=== PATIENT | male | born 2000 | race Caucasian/White ===

== ENCOUNTER → 2019-06-17 | Day surgery (SDC) | payer OTHER ==
[~2019-06-17] MED LIST: IV RINGERS,LACTATED 1000ML 1,000 ML IV SCH; LIDOCAINE 2% PF 5 ML VIAL. ONE; PROPOFOL 60 ML IV ONE
--- NOTE | 2019-06-17 13:34 | PDOC4 ---
PROCEDURE Procedure Colonoscopy/biopsies EGD/biopsies Indication: Blood in stool/dyspepsia Meds: per anesthesia Findings: JEFFREY--normal -'Scope advanced to TI. Mucosa normal. No polyps, tics, etc. No real hemorrhoids nor fissure. Biopsies rectum to r/o inflammation. EGD E--Grade A at 42cm. G--Mile antral erythema D--normal to 3rd portion. Mikey. well. IMP: Normal colon, biopsies pending. Reflux Mild antral erythema, non-specific. REC: Await histology. F/u in 2 weeks. Unless otherwise indicated, colonoscopy age 45-50 for screening. BECKIE BROWN MD Jun 17, 2019 13:34
[2019-06-17 14:09] VITALS: BP 107/65
--- NOTE | 2019-06-19 18:06 | PATHOLOGY ---
[facility] Accession Number: [id number] . 01 Material submitted: . PART A: stomach - ANTRAL BIOPSY PART B: rectum - RECTAL BIOPSY . 01 Clinical history: . Heartburn, blood in stool . 02 Diagnosis: A. Gastric biopsy, antrum: - Active chronic gastritis, moderate to marked, with numerous Helicobacter organisms identified. . B. Colorectal biopsy, rectum: - No significant pathologic abnormalities. (JPM:[facility] 06/19/2019) [facility] 06/19/2019 0932 Local . 02 Comment: Sections of the gastric biopsy reveal gastric antral mucosa showing congestion and moderate to marked active chronic inflammation. A properly controlled immunoperoxidase stain for Helicobacter reveals numerous Helicobacter organisms. . Sections of the rectal biopsy reveal several segments of rectal mucosa showing focal recent hemorrhage within the lamina propria and presence of a mucosa-associated lymphoid aggregate. There is no evidence of a chronic destructive colitis, lymphocytic colitis, or collagenous colitis. There are no adenomatous changes or evidence of malignancy. (JPM:[facility] 06/19/2019) . Special stain performed: Immunoperoxidase for Helicobacter . 02 Electronically signed: . Roque Lambert MD, Pathologist NPI- [id number] . 01 Gross description: . A. The specimen is received in formalin, labeled "Ravi Lara, antral biopsy". Received are two segments of pale breaux soft tissue ranging in size from 0.4 to 0.5 cm in maximum dimensions. The specimen is submitted entirely in cassette A1. . B. The specimen is received in formalin, labeled "Ravi Lara, rectal biopsy". Received are three segments of pale breaux soft tissue ranging in size from 0.2 to 0.4 cm in maximum dimensions. The specimen is submitted entirely in cassette B1. ([facility]; 06/18/2019) [facility]AC 06/18/2019 1611 Local . 02 Pathologist provided ICD-10: K29.50, B96.81 . 02 CPT . 322621, 650382, E03930 Specimen Comment: A courtesy copy of this report has been sent to Specimen Comment: [phone]. Specimen Comment: Report sent to Performed at: [address], [place], [place] [id number] MD Paco Alonzo MD Phone: [phone] [facility]: [facility] [address] [place], [place] [id number] MD Roque Lambert MD Phone: [phone]
== END ==
LOC: SURG 12:00
PROVIDERS: ATTEND Internal Medicine Gastroenterology
DX: K21.0 Gastro-esophageal reflux disease with esophagitis (principal); K29.50 Unspecified chronic gastritis without bleeding; K29.00 Acute gastritis without bleeding; K63.89 Other specified diseases of intestine; F15.90 Other stimulant use, unspecified, uncomplicated
CPT/HCPCS: 43239; 45380; 88305; 88342; J2001; J2704